=== PATIENT | male | born 1955 | race Caucasian/White ===

== ENCOUNTER 2018-11-24 14:59 | Inpatient (IN) | payer OTHER ==
[2018-11-24 16:56] VITALS: BMI 22.8
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
[2018-11-24] MEDS ORDERED: MAG HYDROX/AL HYDROX/SIMETH 30 ML UNIT-DOSE CUP PO PRN (18:17)
[2018-11-24] MEDS ORDERED: IBUPROFEN 400 MG TABLET (FP) PO PRN (18:17)
[2018-11-24] MEDS ORDERED: MENTHOL/PHENOL 1 EACH UD MM PRN (18:17)
[2018-11-24] MEDS ORDERED: MELATONIN 5 MG TABLETS PO PRN (18:17)
[2018-11-24] MEDS ORDERED: BISMUTH SUBSALICYLATE 524 MG/30 ML UD PO PRN (18:17)
[2018-11-24] MEDS ORDERED: ACETAMINOPHEN 325 MG TABLET (FP) PO PRN ×2 (18:17)
[2018-11-24] MEDS ORDERED: MAGNESIUM HYDROX 2400MG/30ML ORAL SUSPENSION 30 ML CUP PO PRN (18:17)
[2018-11-24] MEDS ORDERED: MAGNESIUM CITRATE 300 ML BOTTLE PO PRN (18:17)
[2018-11-24] MEDS ORDERED: chlordiazePOXIDE HCL 25 MG CAPSULE PO PRN (18:20)
[2018-11-24] MEDS ORDERED: BUPRENORPHINE/NALOXONE 8 MG/2 MG FILM PACKET SL ONE (19:00)
[2018-11-24] MEDS ORDERED: QUEtiapine FUMARATE 50 MG TABLET PO SCH (22:00)
[2018-11-24] MEDS ORDERED: QUEtiapine FUMARATE 50 MG TABLET PO ONE (22:00)
[2018-11-24] MEDS: PANTOPRAZOLE 40 MG TABLET (FP) PO SCH (22:11)
[2018-11-24] MEDS: THIAMINE HCL 100 MG TABLET (FP) PO SCH (22:11)
[2018-11-24] MEDS: chlordiazePOXIDE HCL 25 MG CAPSULE PO SCH (22:11)
[2018-11-24] MEDS: SENNOSIDES 8.6MG TABLET (FP) PO SCH (22:12)
[2018-11-24] MEDS: GABAPENTIN 300 MG CAPSULE (FP) PO SCH (22:12)
[2018-11-24] MEDS: TAMSULOSIN HCL 0.4 MG CAP PO SCH (22:12)
[2018-11-25] MEDS: SENNOSIDES 8.6MG TABLET (FP) PO SCH ×3 (06:16→22:03)
[2018-11-25] MEDS: GABAPENTIN 300 MG CAPSULE (FP) PO SCH ×3 (06:16→22:03)
[2018-11-25] MEDS: BUPRENORPHINE/NALOXONE 8 MG/2 MG FILM PACKET SL SCH ×3 (06:16→17:10)
[2018-11-25] MEDS: chlordiazePOXIDE HCL 25 MG CAPSULE PO SCH ×4 (06:16→22:03)
--- NOTE | 2018-11-25 09:29 | CONSULT ---
[facility] Psychiatric Consult - Data Date of interview: 11/25/18 Admission source: Self-referred Identifying data: Mr John is a 63 years old male, father of a 30 years old daughter, unemployed receiving SSI, living with his mother seeking detox treatment for alcohol and heroin Substance Abuse History: Report history of alcohol and heroin use. Refer to addiction counselor's summary for further information Medical History: Significant for hypertension, GERD, BPH, back pain, history of pulmonary embolism, mild myocardial infarction with pacemaker implantation, laminectomy, bilateral inguinal hernia repair and torn right achilles repair. Patient is on suboxone 8/2 BID. Smokes cigarettes 1 ppd Psychiatric History: Patient is a poor and anxious historian. Reports that he was diagnosed with MDD in 2009 following the of his and daughter. In January 2018, diagnosis of revised to Bipolar Disorder. Reports receiving psychiatric treatment at the [facility] and he is currently prescribed Remeron 60 mg/hs and Seroquel 50 mg/hs. Denies previous psychiatric hospitalization or suicidal attempt. At present, denies experiencing psychotic, manic or depressive symptoms, S/H ideations. Howeverm, reports feeling very anxious and sleeping poorly Physical/Sexual Abuse/Trauma History: Denies history of emotional, physical or sexual abuse as well as DV relationship. 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 Discharge was honorable Additional Comment: Denies criminal history Mental Status Exam - Mental Status Exam Alert and Oriented to: Time, Place, Person Cognitive Function: Fair Patient Appearance: Well Groomed Mood: Anxious Affect: Appropriate Patient Behavior: Cooperative Speech Pattern: Clear Voice Loudness: Normal Thought Process: Intact Sleep: Poorly Appetite: Poor Muscle strength/Tone: Normal Gait/Station: Normal Psychiatric Findings - Problem List ([place] 1, 2,3) (1) Bipolar II disorder Current Visit: Yes Status: Chronic (2) Substance-induced anxiety disorder Current Visit: Yes Status: Acute (3) Substance-induced sleep disorder Current Visit: Yes Status: Acute (4) Alcohol dependence with uncomplicated withdrawal Current Visit: Yes Status: Acute (5) Opioid dependence on agonist therapy Current Visit: Yes Status: Chronic (6) Nicotine dependence Current Visit: Yes Status: Chronic (7) Essential hypertension Current Visit: Yes Status: Active (8) Gastroesophageal reflux disease Current Visit: Yes Status: Active (9) Withdrawal seizures Current Visit: Yes Status: Resolved (10) Pulmonary embolism Current Visit: Yes Status: Resolved (11) Myocardial infarction Current Visit: Yes Status: Resolved (12) Back pain Current Visit: Yes Status: Chronic (13) BPH (benign prostatic hyperplasia) Current Visit: Yes Status: Chronic - Initial Treatment Plan Initial Treatment Plan: 1) Continue Seroquel 50 mg po HS. 2) Start Remeron 45 mg po HS. 3) Continue inpatient detoxification
[2018-11-25] MEDS: PRENATAL VITAMINS W/ FOLIC ACID TABLET (FP) PO SCH (10:22)
[2018-11-25] MEDS: PANTOPRAZOLE 40 MG TABLET (FP) PO SCH ×2 (10:22→22:03)
[2018-11-25] MEDS: LORATADINE 10 MG TABLET PO SCH (10:22)
[2018-11-25] MEDS: CYCLOBENZAPRINE HCL 10 MG TABLET (FP) PO PRN (10:24)
[2018-11-25 11:03] LABS: HEMATOCRIT 36.2 % (35.4-49); MCH 30.9 pg (25.7-33.7); MEAN CELL VOLUME 93.8 fl (80-96); MEAN PLT VOLUME 8.3 fl (7.5-11.1); PLATELET COUNT 235 K/MM3 (134-434); RBC 3.86 M/mm3 (4.00-5.60); RDW 15.7 % (11.9-15.9); WHITE BLOOD COUNT 8.4 K/mm3 (4.0-10.0)
[2018-11-25 11:12] LABS: ALBUMIN 3.2 g/dl (3.4-5.0); BILIRUBIN,TOTAL 0.6 mg/dL (0.2-1); CALCIUM 8.2 mg/dL (8.5-10.1); CREATININE 0.8 mg/dL (0.55-1.3); POTASSIUM 3.4 mmol/L (3.5-5.1); TOT PROT 5.9 g/dl (6.4-8.2)
[2018-11-25] MEDS ORDERED: chlordiazePOXIDE HCL 10 MG CAPSULE PO PRN (15:04)
--- NOTE | 2018-11-25 15:09 | PN ---
[facility] CIWA - CIWA Score Nausea/Vomitin-No Nausea/No Vomiting Muscle Tremors: 4-Moderate,w/Arms Extend Anxiety: 3 Agitation: 1-Slight > Activity Paroxysmal Sweats: No Perspiration Orientation: 0-Oriented Tacttile Disturbances: 2-Mild Itch/Numbness/Burn Auditory Disturbances: 0-None Visual Disturbances: 3-Moderate Sensitivity Headache: 0-None Present CIWA-Ar Total Score: 13 S Progress Note (SOAP) Subjective: Body Aches, Tremors, Interrupted Sleep, Constipation., Anxious. Objective: PATIENT A & O X 3, OBSERVED AMBULATING ON UNIT UNASSISTED. IN NO ACUTE DISTRESS. 11/25/18 15:06 Vital Signs Temperature 98.1 F 11/25/18 13:44 Pulse Rate 65 11/25/18 13:44 Respiratory Rate 18 11/25/18 13:44 Blood Pressure 103/68 11/25/18 13:44 O2 Sat by Pulse Oximetry (%) Laboratory Tests 11/25/18 11/25/18 07:00 07:00 WBC 8.4 RBC 3.86 L Hgb 12.0 Hct 36.2 MCV 93.8 MCH 30.9 MCHC 33.0 RDW 15.7 D Plt Count 235 MPV 8.3 Sodium 141 Potassium 3.4 L Chloride 103 Carbon Dioxide 30 Anion Gap 7 L BUN 13 Creatinine 0.8 Est GFR (CKD-EPI)AfAm 111.74 Est GFR (CKD-EPI)NonAf 96.41 Random Glucose 123 H Calcium 8.2 L Total Bilirubin 0.6 AST 28 ALT 24 Alkaline Phosphatase 135 H Total Protein 5.9 L Albumin 3.2 L LABS NOTED. Assessment: 11/25/18 15:06 WITHDRAWAL SYMPTOMS. HYPOKALEMIA. ELEVATED ALKALINE PHOSPHATASE LEVEL. Plan: CONTINUE DETOX. INCREASE DAILY PO FLUID / WATER INTAKE. K-DUR, 40 MEQ PO X 1 NOW, THEN 20 MEQ PO BID STARTING TOMORROW FOR LOW ADMISSION POTASSIUM LEVEL. PATIENT REPORTS THAT HE WOULD LIKE TO BE DISCHARGED ON 11/27/2018 SO THAT HE MAY BE ABLE TO APPLY FOR ADMISSION TO REHAB LATER THAT DAY. AT PATIENT'S REQUEST , CURRENT DETOX MEDICATION REGIMEN (LIBRIUM) MODIFIED SO THAT PATIENT MAY BE DISCHARGED ON 11/27/2018.
[2018-11-25] MEDS ORDERED: POTASSIUM CHLORIDE TABS 20 MEQ TABLET.ER (FP) PO ONE (16:15)
[2018-11-25] MEDS: QUEtiapine FUMARATE 50 MG TABLET PO SCH (22:03)
[2018-11-25] MEDS: TAMSULOSIN HCL 0.4 MG CAP PO SCH (22:03)
[2018-11-25] MEDS: MIRTAZAPINE 15 MG TABLET (FP) PO SCH (22:03)
[2018-11-25] MEDS: THIAMINE HCL 100 MG TABLET (FP) PO SCH (22:03)
[2018-11-25] MEDS ORDERED: chlordiazePOXIDE HCL 25 MG CAPSULE PO SCH (23:00)
[2018-11-26] MEDS: GABAPENTIN 300 MG CAPSULE (FP) PO SCH ×3 (06:45→22:11)
[2018-11-26] MEDS: BUPRENORPHINE/NALOXONE 8 MG/2 MG FILM PACKET SL SCH ×3 (06:45→17:38)
[2018-11-26] MEDS: chlordiazePOXIDE HCL 10 MG CAPSULE PO SCH ×4 (06:45→22:11)
[2018-11-26] MEDS: SENNOSIDES 8.6MG TABLET (FP) PO SCH ×3 (06:45→22:11)
[2018-11-26 08:41] LABS: RPR REACTIVE 1:1 (NONREACTIVE)
[2018-11-26 08:47] LABS: TREPONEMA ANTIBODY PREVIOUSLY REACTIVE (NONREACTIVE)
[2018-11-26] MEDS: hydrOXYzine PAMOATE 50 MG CAPSULE (FP) PO PRN (09:20)
[2018-11-26] MEDS: PRENATAL VITAMINS W/ FOLIC ACID TABLET (FP) PO SCH (10:25)
[2018-11-26] MEDS: LORATADINE 10 MG TABLET PO SCH (10:25)
[2018-11-26] MEDS: CYCLOBENZAPRINE HCL 10 MG TABLET (FP) PO PRN ×2 (10:25→17:41)
[2018-11-26] MEDS: POTASSIUM CHLORIDE TABS 20 MEQ TABLET.ER (FP) PO SCH ×2 (10:25→17:38)
[2018-11-26] MEDS: PANTOPRAZOLE 40 MG TABLET (FP) PO SCH ×2 (10:25→22:12)
--- NOTE | 2018-11-26 10:38 | PN ---
S CIWA - CIWA Score Nausea/Vomitin Muscle Tremors: 2 Anxiety: 2 Agitation: 1-Slight > Activity Paroxysmal Sweats: 1-Minimal Palms Moist Orientation: 0-Oriented Tacttile Disturbances: 1-Very Mild Itch/Numbness Auditory Disturbances: 1-Very Mild Visual Disturbances: 0-None Headache: 2-Mild CIWA-Ar Total Score: 12 BHS Progress Note (SOAP) Subjective: alert,irritable,anxious,interrupted sleep Objective: 11/26/18 10:38 Vital Signs Temperature 97.5 F L 11/26/18 09:15 Pulse Rate 83 11/26/18 09:15 Respiratory Rate 18 11/26/18 09:15 Blood Pressure 125/96 11/26/18 09:15 O2 Sat by Pulse Oximetry (%) Assessment: 11/26/18 10:38 withdrawal symptom Plan: continue detox
[2018-11-26] MEDS: QUEtiapine FUMARATE 50 MG TABLET PO SCH (22:11)
[2018-11-26] MEDS: TAMSULOSIN HCL 0.4 MG CAP PO SCH (22:11)
[2018-11-26] MEDS: THIAMINE HCL 100 MG TABLET (FP) PO SCH (22:11)
[2018-11-26] MEDS: MIRTAZAPINE 15 MG TABLET (FP) PO SCH (22:12)
[2018-11-26] MEDS ORDERED: chlordiazePOXIDE HCL 10 MG CAPSULE PO SCH (23:00)
[2018-11-26] MEDS ORDERED: chlordiazePOXIDE HCL 10 MG CAPSULE PO PRN (23:00)
[2018-11-27] MEDS: chlordiazePOXIDE HCL 10 MG CAPSULE PO SCH (06:20)
[2018-11-27 06:21] VITALS: PULSE 61
[2018-11-27] MEDS: GABAPENTIN 300 MG CAPSULE (FP) PO SCH (06:21)
[2018-11-27] MEDS: BUPRENORPHINE/NALOXONE 8 MG/2 MG FILM PACKET SL SCH (06:21)
[2018-11-27] MEDS: SENNOSIDES 8.6MG TABLET (FP) PO SCH (06:21)
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
[2018-11-27] MEDS: hydrOXYzine PAMOATE 50 MG CAPSULE (FP) PO PRN (09:00)
[2018-11-27] MEDS: CYCLOBENZAPRINE HCL 10 MG TABLET (FP) PO PRN (09:00)
[2018-11-27] MEDS: PRENATAL VITAMINS W/ FOLIC ACID TABLET (FP) PO SCH (09:01)
[2018-11-27] MEDS: LORATADINE 10 MG TABLET PO SCH (09:02)
[2018-11-27] MEDS: POTASSIUM CHLORIDE TABS 20 MEQ TABLET.ER (FP) PO SCH (09:03)
[2018-11-27 09:15] VITALS: BP 132/76; TEMP 97.7
[2018-11-27] MEDS ORDERED: chlordiazePOXIDE HCL 10 MG CAPSULE PO SCH (23:00)
== END 2018-11-27 09:31 | disposition home or self-care (01) | DRG 896 ==
LOC: YASAS 14:59 → Y6N 18:31
PROVIDERS: ADMIT Surgery; ATTEND Surgery
PROC: HZ2ZZZZ Detoxification Services for Substance Abuse Treatment (ICD-10-PCS; principal; 2018-11-24)
DX: F10.230 Alcohol dependence with withdrawal, uncomplicated (principal); K85.90 Acute pancreatitis without necrosis or infection, unspecified; F11.20 Opioid dependence, uncomplicated; F19.280 Other psychoactive substance dependence with psychoactive substance-induced anxiety disorder; F19.282 Other psychoactive substance dependence with psychoactive substance-induced sleep disorder; F31.81 Bipolar II disorder; F33.9 Major depressive disorder, recurrent, unspecified; F17.210 Nicotine dependence, cigarettes, uncomplicated; F41.9 Anxiety disorder, unspecified; I10 Essential (primary) hypertension; I25.2 Old myocardial infarction; E87.6 Hypokalemia; K21.9 Gastro-esophageal reflux disease without esophagitis; N40.0 Benign prostatic hyperplasia without lower urinary tract symptoms; R74.0 Nonspecific elevation of levels of transaminase and lactic acid dehydrogenase [LDH]; Z86.711 Personal history of pulmonary embolism; Z79.01 Long term (current) use of anticoagulants; G40.909 Epilepsy, unspecified, not intractable, without status epilepticus; M54.5 Low back pain; D64.9 Anemia, unspecified; Z98.890 Other specified postprocedural states
CPT/HCPCS: 36415; 80053; 85027; 86593; 86780

== ENCOUNTER 2020-02-03 16:42 | Inpatient (IN) | payer OTHER ==
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
[2020-02-03] MEDS ORDERED: P-EPHED 60MG/TRIPROLIDI 2.5MG TABLET PO PRN (21:08)
[2020-02-03] MEDS ORDERED: LOPERAMIDE HCL 2 MG CAPSULE PO PRN (21:08)
[2020-02-03] MEDS ORDERED: guaiFENesin 200 MG/10 ML 10 ML UNIT-DOSE CUPS PO PRN (21:08)
[2020-02-03] MEDS ORDERED: MAGNESIUM HYDROX 2400MG/30ML ORAL SUSPENSION 30 ML CUP PO PRN (21:08)
[2020-02-03] MEDS ORDERED: MAGNESIUM CITRATE 300 ML BOTTLE PO PRN (21:08)
[2020-02-03 22:02] VITALS: BMI 23.7
[2020-02-03] MEDS ORDERED: TUBERCULIN PPD 5 TU/0.1ML VIAL ID ONE ×2 (23:01→23:17)
[2020-02-03] MEDS: hydrOXYzine PAMOATE 25 MG CAPSULE (FP) PO PRN (23:53)
[2020-02-03] MEDS: ACETAMINOPHEN 325 MG TABLET (FP) PO PRN (23:53)
[2020-02-03] MEDS: MELATONIN 5 MG TABLETS PO SCH (23:53)
[2020-02-03] MEDS ORDERED: MASKS NR ONE (23:53)
[2020-02-03] MEDS: THIAMINE HCL 100 MG TABLET (FP) PO SCH (23:53)
[2020-02-04] MEDS: ACETAMINOPHEN 325 MG TABLET (FP) PO PRN (04:49)
[2020-02-04] MEDS: hydrOXYzine PAMOATE 25 MG CAPSULE (FP) PO PRN ×3 (04:49→14:56)
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
[2020-02-04] MEDS: MELATONIN 5 MG TABLETS PO SCH (09:05)
[2020-02-04] MEDS: PANTOPRAZOLE 40 MG TABLET PO SCH ×2 (09:49→21:03)
[2020-02-04] MEDS: BUPRENORPHINE/NALOXONE 8 MG/2 MG FILM PACKET SL SCH ×2 (09:49→14:56)
[2020-02-04] MEDS: PRENATAL VITAMINS W/ FOLIC ACID TABLET (FP) PO SCH (09:49)
[2020-02-04 11:35] LABS: HEMATOCRIT 37.5 % (35.4-49); MCH 30.8 pg (25.7-33.7); MEAN CELL VOLUME 96.2 fl (80-96); MEAN PLT VOLUME 8.8 fl (7.5-11.1); PLATELET COUNT 317 K/MM3 (134-434); RDW 16.1 % (11.9-15.9); WHITE BLOOD COUNT 4.6 K/mm3 (4.0-10.0)
[2020-02-04 11:38] LABS: ALBUMIN 3.2 g/dl (3.4-5.0); BILIRUBIN,TOTAL 0.5 mg/dL (0.2-1); BLOOD UREA NITROGEN 7.8 mg/dL (7-18); CALCIUM 8.8 mg/dL (8.5-10.1); CREATININE 0.7 mg/dL (0.55-1.3); POTASSIUM 3.8 mmol/L (3.5-5.1)
[2020-02-04 11:49] LABS: SICKLE CELL SCREEN NEGATIVE (NEGATIVE)
[2020-02-04] MEDS: IBUPROFEN 400 MG TABLET (FP) PO PRN (12:08)
[2020-02-04] MEDS: MAG HYDROX/AL HYDROX/SIMETH 30 ML UNIT-DOSE CUP PO PRN (13:21)
--- NOTE | 2020-02-04 15:45 | PN ---
[facility] Progress Note Note: Pt c/o nausea and decreased appetite. hx of lower back pain and requests lidocaine patc. reports he has primary care with the [facility] in [place]. Vital Signs - 24 hr 02/03/20 02/03/20 02/04/20 21:55 22:12 00:11 Temperature 98 F 97.7 F Pulse Rate 63 Respiratory 18 18 Rate Blood Pressure 138/89 129/78 O2 Sat by Pulse 97 97 Oximetry (%) 02/04/20 13:42 Temperature Pulse Rate Respiratory Rate Blood Pressure O2 Sat by Pulse 96 Oximetry (%) Laboratory Tests 02/04/20 02/04/20 02/04/20 08:00 08:00 08:00 WBC 4.6 RBC 3.90 L Hgb 12.0 Hct 37.5 MCV 96.2 H MCH 30.8 MCHC 32.0 RDW 16.1 H Plt Count 317 D MPV 8.8 Sickle Cell Screen Negative Sodium 140 Potassium 3.8 Chloride 103 Carbon Dioxide 30 Anion Gap 7 L BUN 7.8 Creatinine 0.7 Est GFR (CKD-EPI)AfAm 117.22 Est GFR (CKD-EPI)NonAf 101.14 Random Glucose 96 Calcium 8.8 Total Bilirubin 0.5 AST 21 ALT 25 Alkaline Phosphatase 68 Total Protein 6.0 L Albumin 3.2 L Syphilis Serology Reactive A* RPR Titer 02/04/20 08:00 WBC RBC Hgb Hct MCV MCH MCHC RDW Plt Count MPV Sickle Cell Screen Sodium Potassium Chloride Carbon Dioxide Anion Gap BUN Creatinine Est GFR (CKD-EPI)AfAm Est GFR (CKD-EPI)NonAf Random Glucose Calcium Total Bilirubin AST ALT Alkaline Phosphatase Total Protein Albumin Syphilis Serology RPR Titer Reactive 1:1 H Pt states Hx of Syphilis in the past. A:Rehab pt Zofran prn Lidocaine patch 55 to lower back as directed Ensure clear 1 twice daily-may change to regular Ensure if tolerating.
--- NOTE | 2020-02-04 15:47 | EKG ---
Test Reason : Blood Pressure : / mmHG Vent. Rate : 060 BPM Atrial Rate : 060 BPM P-R Int : 232 ms QRS Dur : 096 ms QT Int : 432 ms P-R-T Axes : 053 010 045 degrees QTc Int : 432 ms Atrial-paced rhythm with prolonged AV conduction ANTERIOR INFARCT (CITED ON OR BEFORE 06-MAY-2013) ABNORMAL ECG WHEN COMPARED WITH ECG OF 06-MAY-2013 20:04, ELECTRONIC ATRIAL PACEMAKER HAS REPLACED SINUS RHYTHM Confirmed by MEDARDO GHOSH MD ([id number]) on 02/04/2020 3:46:35 PM Referred By: Confirmed By:MEDARDO GHOSH MD
[2020-02-04] MEDS: ONDANSETRON *ODT* 4 MG TABLET SL PRN (16:51)
[2020-02-04] MEDS: LIDOCAINE 5% TOPICAL PATCH TP SCH (16:53)
[2020-02-04] MEDS: QUEtiapine FUMARATE 25 MG TABLET PO SCH (21:03)
[2020-02-04] MEDS: MIRTAZAPINE 15 MG TABLET (FP) PO SCH (21:03)
[2020-02-04] MEDS: TAMSULOSIN HCL 0.4 MG CAP PO SCH (21:03)
[2020-02-04] MEDS: THIAMINE HCL 100 MG TABLET (FP) PO SCH (21:04)
[2020-02-04] MEDS ORDERED: cloNIDine HCL 0.1 MG TABLET PO ONE (23:27)
[2020-02-05] MEDS: ACETAMINOPHEN 325 MG TABLET (FP) PO PRN ×3 (06:04→21:02)
[2020-02-05] MEDS: hydrOXYzine PAMOATE 25 MG CAPSULE (FP) PO PRN ×3 (06:04→21:03)
[2020-02-05] MEDS: LIDOCAINE PATCH REMOVAL MC SCH (06:55)
[2020-02-05] MEDS: TAMSULOSIN HCL 0.4 MG CAP PO SCH ×2 (09:47→21:03)
[2020-02-05] MEDS: PANTOPRAZOLE 40 MG TABLET PO SCH ×2 (09:47→21:03)
[2020-02-05] MEDS: ONDANSETRON *ODT* 4 MG TABLET SL PRN ×2 (09:47→17:57)
[2020-02-05] MEDS: PRENATAL VITAMINS W/ FOLIC ACID TABLET (FP) PO SCH (09:48)
[2020-02-05] MEDS: BUPRENORPHINE/NALOXONE 8 MG/2 MG FILM PACKET SL SCH ×2 (09:48→15:03)
[2020-02-05] MEDS: IBUPROFEN 400 MG TABLET (FP) PO PRN ×2 (11:08→17:56)
[2020-02-05] MEDS: LIDOCAINE 5% TOPICAL PATCH TP SCH (17:08)
[2020-02-05] MEDS: QUEtiapine FUMARATE 25 MG TABLET PO SCH (21:03)
[2020-02-05] MEDS: MELATONIN 5 MG TABLETS PO SCH (21:03)
[2020-02-05] MEDS: MIRTAZAPINE 15 MG TABLET (FP) PO SCH (21:03)
[2020-02-05] MEDS: THIAMINE HCL 100 MG TABLET (FP) PO SCH (21:03)
[2020-02-06] MEDS: LIDOCAINE PATCH REMOVAL MC SCH (06:04)
[2020-02-06] MEDS: ACETAMINOPHEN 325 MG TABLET (FP) PO PRN ×3 (06:05→21:14)
[2020-02-06] MEDS: hydrOXYzine PAMOATE 25 MG CAPSULE (FP) PO PRN ×2 (06:06→14:57)
[2020-02-06] MEDS: ONDANSETRON *ODT* 4 MG TABLET SL PRN (06:07)
[2020-02-06 06:47] VITALS: TEMP 97.6
[2020-02-06] MEDS: BUPRENORPHINE/NALOXONE 8 MG/2 MG FILM PACKET SL SCH ×2 (09:45→14:57)
[2020-02-06] MEDS: PANTOPRAZOLE 40 MG TABLET PO SCH ×2 (09:45→21:15)
[2020-02-06] MEDS: PRENATAL VITAMINS W/ FOLIC ACID TABLET (FP) PO SCH (09:45)
[2020-02-06] MEDS: IBUPROFEN 400 MG TABLET (FP) PO PRN ×2 (09:46→16:43)
[2020-02-06 13:43] LABS: URINE APPEARANCE CLEAR; URINE BILIRUBIN NEGATIVE (NEGATIVE); URINE COLOR YELLOW; URINE GLUCOSE (UA) NEGATIVE (NEGATIVE); URINE KETONE NEGATIVE (NEGATIVE); URINE LEUK ESTERASE NEGATIVE (NEGATIVE); URINE NITRITE NEGATIVE (NEGATIVE); URINE PROTEIN NEGATIVE (NEGATIVE)
[2020-02-06] MEDS: MAG HYDROX/AL HYDROX/SIMETH 30 ML UNIT-DOSE CUP PO PRN (16:43)
[2020-02-06] MEDS: LIDOCAINE 5% TOPICAL PATCH TP SCH (17:54)
[2020-02-06] MEDS: TAMSULOSIN HCL 0.4 MG CAP PO SCH (21:14)
[2020-02-06] MEDS: QUEtiapine FUMARATE 25 MG TABLET PO SCH (21:14)
[2020-02-06] MEDS: MIRTAZAPINE 15 MG TABLET (FP) PO SCH (21:14)
[2020-02-06] MEDS: MELATONIN 5 MG TABLETS PO SCH (21:15)
[2020-02-06] MEDS: THIAMINE HCL 100 MG TABLET (FP) PO SCH (21:15)
[2020-02-07] MEDS: ACETAMINOPHEN 325 MG TABLET (FP) PO PRN (06:20)
[2020-02-07] MEDS: ONDANSETRON *ODT* 4 MG TABLET SL PRN (06:20)
[2020-02-07 07:14] VITALS: BP 143/89; PULSE 89
[2020-02-07] MEDS: LIDOCAINE PATCH REMOVAL MC SCH (07:50)
[2020-02-07] MEDS: BUPRENORPHINE/NALOXONE 8 MG/2 MG FILM PACKET SL SCH (09:44)
[2020-02-07] MEDS: PRENATAL VITAMINS W/ FOLIC ACID TABLET (FP) PO SCH (09:47)
[2020-02-07] MEDS: PANTOPRAZOLE 40 MG TABLET PO SCH (09:47)
[2020-02-07] MEDS: IBUPROFEN 400 MG TABLET (FP) PO PRN (09:48)
[2020-02-07] MEDS ORDERED: hydrOXYzine PAMOATE 25 MG CAPSULE (FP) PO PRN (10:08)
--- NOTE | 2020-02-07 12:14 | DS ---
[facility] Rehab Discharge Summary - [facility] Rehab Discharge Summary Admission Date: 02/03/20 Discharge Date: 02/07/20 - History Present History: Alcohol dependence Additional Comments: Pt requested for early discharge today and wants to follow up with his [facility] in [place]. pt is also on Suboxone and has his last Rx for Suboxone was 02/03/20 as per PNP document below. Pertinent Past History: BPH Barretts Esophagus HTN PE KS Back Pain Osteoarthritis Arthritis Left Shoulder Torn rotator cuff injury right GERD Hx [id number] Seizure - Discharge Physical Exam Vital Signs: Vital Signs Temperature 97.6 F 02/07/20 07:13 Pulse Rate 89 02/07/20 07:13 Respiratory Rate 18 02/07/20 07:13 Blood Pressure 143/89 02/07/20 07:13 O2 Sat by Pulse Oximetry (%) 97 02/07/20 07:13 Alert o x 3 nad oob ambulating with steady gait cardiac:s1 s2,rrr lungs:ctab abdomen:soft,+bs,nt,nd extremities;no edema,skin intake Pertinent Admission Physical Exam Findings: Laboratory Tests 02/04/20 02/04/20 02/04/20 08:00 08:00 08:00 WBC 4.6 RBC 3.90 L Hgb 12.0 Hct 37.5 MCV 96.2 H MCH 30.8 MCHC 32.0 RDW 16.1 H Plt Count 317 D MPV 8.8 Sickle Cell Screen Negative Sodium 140 Potassium 3.8 Chloride 103 Carbon Dioxide 30 Anion Gap 7 L BUN 7.8 Creatinine 0.7 Est GFR (CKD-EPI)AfAm 117.22 Est GFR (CKD-EPI)NonAf 101.14 Random Glucose 96 Calcium 8.8 Total Bilirubin 0.5 AST 21 ALT 25 Alkaline Phosphatase 68 Total Protein 6.0 L Albumin 3.2 L Urine Color Urine Appearance Urine pH Ur Specific [place] Urine Protein Urine Glucose (UA) Urine Ketones Urine Blood Urine Nitrite Urine Bilirubin Urine Urobilinogen Ur Leukocyte Esterase Syphilis Serology Reactive A* RPR Titer 02/04/20 02/06/20 08:00 08:20 WBC RBC Hgb Hct MCV MCH MCHC RDW Plt Count MPV Sickle Cell Screen Sodium Potassium Chloride Carbon Dioxide Anion Gap BUN Creatinine Est GFR (CKD-EPI)AfAm Est GFR (CKD-EPI)NonAf Random Glucose Calcium Total Bilirubin AST ALT Alkaline Phosphatase Total Protein Albumin Urine Color Yellow Urine Appearance Clear Urine pH 5.0 D Ur Specific [place] 1.023 Urine Protein Negative Urine Glucose (UA) Negative Urine Ketones Negative Urine Blood Negative Urine Nitrite Negative Urine Bilirubin Negative Urine Urobilinogen 1.0 Ur Leukocyte Esterase Negative Syphilis Serology RPR Titer Reactive 1:1 H Reports past hx of Syphilis with tx. - Treatment Discharge Condition: Discharge condition good Hospital Course: Pt accepted CD aftercare referral to [place], [place] - Medication Discharge Medications: Ambulatory Orders Melatonin 3 mg PO HS 11/24/18 Mirtazapine [Remeron -] 45 mg PO HS 11/24/18 Pantoprazole Sodium [Protonix -] 40 mg PO BID 11/24/18 Quetiapine Fumarate [Seroquel -] 75 mg PO HS 11/24/18 Sennosides [Senna] 8.6 mg PO TID 11/24/18 Tamsulosin HCl 0.4 mg PO HS 11/24/18 Thiamine Mononitrate [Vitamin B-1] 100 mg PO BID 11/24/18 Albuterol Sulfate Inhaler - [Ventolin HFA Inhaler -] 1 inh PO Q4HWA 02/03/20 Buprenorphine HCl/Naloxone HCl [Suboxone 8 mg-2 mg Sl Tablets] 1 tablet PO BID 02/03/20 Fluticasone Propionate [Flovent Diskus] 50 mcg IH DAILY PRN 02/03/20 Hydroxyzine HCl 50 mg PO DAILY 02/03/20 Propranolol HCl 60 mg PO DAILY 02/03/20 - Medication-Assisted Treatment (MAT) Medication-Assisted Treatment (MAT): Yes Medication Prescribed: Suboxone MAT Follow-up Referral: [facility] - Discharge Instructions Diet, activity, other medical instructions: Diet:ANDREW Activity: oob ad goldie Other medical instructions:follow up with Cd aftercare /Medical/Psych management with [facility] Kayce, as recommended. - Diagnosis (1) Alcohol dependence, uncomplicated Current Visit: Yes Status: Chronic (2) Pacemaker Current Visit: Yes Status: Chronic (3) Osteoarthritis Current Visit: Yes Status: Chronic Qualifiers: Osteoarthritis location: foot Laterality: left (4) Barretts esophagus Current Visit: Yes Status: Chronic (5) Gastroesophageal reflux disease Current Visit: Yes Status: Chronic (6) Opioid dependence on agonist therapy Current Visit: Yes Status: Chronic (7) Nicotine dependence Current Visit: Yes Status: Chronic Qualifiers: Nicotine product type: cigarettes Substance use status: uncomplicated Qualified Code(s): F17.210 - Nicotine dependence, cigarettes, uncomplicated (8) Back pain Current Visit: Yes Status: Chronic Qualifiers: Back pain location: low back pain Chronicity: unspecified (9) BPH (benign prostatic hyperplasia) Current Visit: Yes Status: Chronic Qualifiers: Lower urinary tract symptom detail: unspecified - Follow-up Referral Minutes to complete discharge: 30 - AMA Did Patient Leave Against Medical Advice: No Additional Comments: Others' Prescriptions Patient Name: Blas Michel Date: 1955 Address: [address] [place] [id number]: Male Rx Written Rx Dispensed Drug Quantity Days Supply Prescriber Name Payment Method Dispenser 02/03/2020 02/03/2020 buprenorphine-naloxone 8-2 mg sl tablet 28 14 Brad Yang MD [facility] 01/14/2020 01/14/2020 buprenorphine-naloxone 2-0.5 mg sl tablet 6 3 Emilie Hill [facility] 12/22/2019 12/22/2019 buprenorphine-naloxone 8-2 mg sl tablet 28 7 Brad Yang MD [facility] 12/14/2019 12/14/2019 buprenorphine-naloxone 8-2 mg sl tablet 6 2 Nelda Salinas [facility] 12/08/2019 12/08/2019 chlordiazepoxide 25 mg capsule 2 1 [id number] 12/08/2019 12/08/2019 chlordiazepoxide 10 mg capsule 3 1 [facility] #[id number] 11/09/2019 11/10/2019 buprenorphine-naloxone 8-2 mg sl tablet 28 7 [facility] 10/12/2019 10/13/2019 buprenorphine-naloxone 8-2 mg sl tablet 120 30 [facility] 09/10/2019 09/10/2019 buprenorphine-naloxone 8-2 mg sl tablet 120 30 Brad Yang MD [facility] 07/29/2019 07/29/2019 buprenorphine-naloxone 8-2 mg sl tablet 20 5 Emilie Hill [facility] 04/22/2019 04/23/2019 buprenorphine-naloxone 8-2 mg sl tablet 60 15 Co, Neil Phan MD [facility] * - Drugs marked with an asterisk are compound drugs. If the compound drug is made up of more than one controlled substance, then each controlled substance will be a separate row in the table. Click the Report Suspicious Activity button to report information related to controlled substance suspicious activity to the Day of Narcotic Enforcement. Pt has own medications and will follow up with the [facility] provider/Pharmacy for medical management.
[2020-02-07] MEDS ORDERED: BUPRENORPHINE/NALOXONE 8 MG/2 MG FILM PACKET SL ONE (12:30)
[2020-02-08] MEDS ORDERED: LIDOCAINE PATCH REMOVAL MC SCH (10:00)
== END 2020-02-07 12:50 | disposition home or self-care (01) | DRG 895 ==
LOC: YASAS 16:42 → Y5N 21:35
PROVIDERS: ADMIT Allergy & Immunology; ATTEND Allergy & Immunology
PROC: HZ42ZZZ Group Counseling for Substance Abuse Treatment, Cognitive-Behavioral (ICD-10-PCS; principal; 2020-02-03)
DX: F10.20 Alcohol dependence, uncomplicated (principal); F11.20 Opioid dependence, uncomplicated; F19.282 Other psychoactive substance dependence with psychoactive substance-induced sleep disorder; F19.280 Other psychoactive substance dependence with psychoactive substance-induced anxiety disorder; F31.81 Bipolar II disorder; F17.211 Nicotine dependence, cigarettes, in remission; F19.24 Other psychoactive substance dependence with psychoactive substance-induced mood disorder; I10 Essential (primary) hypertension; K21.9 Gastro-esophageal reflux disease without esophagitis; K22.70 Barrett's esophagus without dysplasia; N40.0 Benign prostatic hyperplasia without lower urinary tract symptoms; M54.5 Low back pain; M19.012 Primary osteoarthritis, left shoulder; I25.2 Old myocardial infarction; Z95.0 Presence of cardiac pacemaker; Z86.711 Personal history of pulmonary embolism; Z86.19 Personal history of other infectious and parasitic diseases; Z86.69 Personal history of other diseases of the nervous system and sense organs; Z87.19 Personal history of other diseases of the digestive system; Z98.890 Other specified postprocedural states
CPT/HCPCS: 36415; 80053; 81003; 85027; 85660; 86593; 86780; 93005; 93010; J0735; Q0162